=== PATIENT | male | born 1980 | race Caucasian/White ===

== ENCOUNTER 2024-12-25 02:48 | Emergency (ER) | payer MEDICARE, SELFPAY ==
--- NOTE | ~2024-12-25 | CT_ITS ---
EXAMINATION: CT cervical spine wo con DATE: 12/25/2024 03:42 INDICATION: Trauma TECHNIQUE: Computed tomography (CT) of the cervical spine was performed without intravenous contrast. Automated exposure control and iterative reconstruction technique were employed. The dose-length pro duct was 605.33 mGy-cm. COMPARISON: 06/29/2015 FINDINGS: Straightening of the normal cervical lordosis. Vertebral body heights are normal. Mild disc height lo ss with degenerative endplate osteophytes at C5-C6. There is a mild disc bulge at this level contribu ting to minimal central canal stenosis at this level. No neural foraminal stenosis. Cervical soft tis sues are unremarkable. Visualized upper lungs are clear. Cardiac pacemaker leads extend through the l eft brachiocephalic vein and beyond the inferior margin of the field of imaging. IMPRESSION: 1. Mild cervical spondylosis. No acute osseous abnormality. Reviewed, dictated and finalized at location A.
--- NOTE | ~2024-12-25 | CT_ITS ---
EXAMINATION: CT brain wo con DATE: 12/25/2024 03:42 INDICATION: Trauma TECHNIQUE: Computed tomography (CT) of the head was performed without intravenous contrast. Sagittal and coronal reconstructions were performed. The mA was adjusted according to patient size. Iterative reconstruction technique was employed. The dose-length product was 605.33 mGy-cm. COMPARISON: head CT dated 12/01/2014 FINDINGS: No acute intracranial hemorrhage, acute infarction or abnormal extra axial fluid collection. Ventricl es are normal and symmetric. No mass/mass effect. The orbits, paranasal sinuses and mastoid air cells are normal. IMPRESSION: 1. Normal head CT. Reviewed, dictated and finalized at location A. IMPRESSION: 1. Normal head CT.
[2024-12-25 02:53] VITALS: BP 145/86; PULSE 78; RESP 18; TEMP 36.5; O2SAT 100
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
[2024-12-25 04:03] VITALS: BP 107/67; PULSE 72; RESP 16; O2SAT 99
[2024-12-25 04:58] VITALS: BP 112/68; PULSE 78; RESP 16; O2SAT 98
== END 2024-12-25 05:01 | disposition home or self-care (01) ==
PROVIDERS: Emergency Provider Emergency Medicine
DX: L30.9 Dermatitis, unspecified (principal); S09.90XA Unspecified injury of head, initial encounter; S19.9XXA Unspecified injury of neck, initial encounter; W22.8XXA Striking against or struck by other objects, initial encounter; L29.9 Pruritus, unspecified
CPT/HCPCS: 70450; 72125; 99284